=== PATIENT | female | born 1985 | race Caucasian/White ===

== ENCOUNTER → 2019-04-17 | Outpatient (CLI) | payer BC ==
--- NOTE | 2019-04-17 12:21 | MR ---
EXAMINATION TYPE: MR shoulder RT wo con DATE OF EXAM: 04/17/2019 COMPARISON: None HISTORY: Traumatic right rotator cuff tear TECHNIQUE: Multiplanar, multisequence imaging of the right shoulder is performed without contrast. FINDINGS: Rotator Cuff: There is abnormal thickening of the rotator cuff with increased signal present. Intrasu bstance fluid signal is present within the infraspinatus tendon Acromioclavicular Joint: Distal acromion is downturned. Fluid signal present in the subacromial subde ltoid bursa. There is hypertrophic change at the acromioclavicular joint. Glenohumeral Joint: Intact Labrum: The labrum appears grossly intact given limitation of non-arthrogram study. Biceps Tendon: The long head of biceps is in normal location within bicipital groove. Bone marrow signal: No focal abnormal marrow signal is appreciated. Other: No additional significant abnormality is appreciated. IMPRESSION: Findings compatible with tendinosis of the rotator cuff tendon. No discrete rotator cuff tear identif ied. Correlate for impingement.
== END | disposition home or self-care (01) ==
LOC: RADMRIMAIN 09:33
PROVIDERS: ATTEND Orthopaedic Surgery
DX: S46.011A Strain of muscle(s) and tendon(s) of the rotator cuff of right shoulder, initial encounter (principal)

== ENCOUNTER 2021-12-14 08:59 | Emergency (ER) | payer BC ==
[2021-12-14 09:03] VITALS: BP 126/72; PULSE 76; RESP 18; TEMP 97.6
--- NOTE | 2021-12-14 09:16 | ED ---
Lower Extremity Injury HPI - General Chief Complaint: Extremity Injury, Lower Stated Complaint: slip & fall, knee injury Time Seen by Provider: 12/14/21 09:05 Source: patient, RN notes reviewed Mode of arrival: ambulatory Limitations: no limitations - History of Present Illness Initial Comments: This a 36-year-old female presents emergency Department with chief complaint of left knee injury. Patient states that she slipped on some cat urine on her step causing her to slip. Patient states that she twisted her knee, popped in her knee she complains of medial knee pain in the left. No head injury loss conscious. Patient does complain of mild foot pain. - Related Data Allergies Allergy/AdvReac Type Severity Reaction Status Date / Time sumatriptan [From Imitrex] Allergy Rash/Hives Verified 12/14/21 09:04 Review of Systems ROS Statement: Those systems with pertinent positive or pertinent negative responses have been documented in the HPI. ROS Other: All systems not noted in ROS Statement are negative. Past Medical History Past Medical History: Asthma History of Any Multi-Drug Resistant Organisms: None Reported Past Surgical History: Cholecystectomy, Orthopedic Surgery, Tubal Ligation Additional Past Surgical History / Comment(s): Cyst Past Psychological History: Depression Smoking Status: Current every day smoker Past Alcohol Use History: None Reported Past Drug Use History: None Reported General Exam Limitations: no limitations General appearance: alert, in no apparent distress Head exam: Present: atraumatic, normocephalic, normal inspection Eye exam: Present: normal appearance, PERRL, EOMI. Absent: scleral icterus, conjunctival injection, periorbital swelling Neck exam: Present: normal inspection, full ROM. Absent: tenderness, meningismus, lymphadenopathy Respiratory exam: Present: normal lung sounds bilaterally. Absent: respiratory distress, wheezes, rales, rhonchi, stridor, chest wall tenderness Cardiovascular Exam: Present: regular rate, normal rhythm, normal heart sounds. Absent: systolic murmur, diastolic murmur, rubs, gallop, clicks Extremities exam: Present: other (Left knee there is mild medial knee pain, pain with valgus, no anterior posterior drawer laxity noted, neurovascular intact there is mild tenderness the left first MTP region otherwise no deformity no significant swelling and ecchymotic areas.) Back exam: Present: full ROM. Absent: tenderness, paraspinal tenderness, vertebral tenderness Neurological exam: Present: alert, oriented X3, CN II-XII intact, reflexes normal. Absent: motor sensory deficit Skin exam: Present: warm, dry, intact, normal color. Absent: rash Course Vital Signs 12/14/21 09:00 Temperature 97.6 F Pulse Rate 76 Respiratory 18 Rate Blood Pressure 126/72 O2 Sat by Pulse 100 Oximetry Medical Decision Making - Medical Decision Making 36-year-old presented emergency apartment for knee injury. X-ray shows small joint effusion. Patient was placed in knee immobilizer follow-up with orthopedics return parameters were discussed. Disposition Clinical Impression: Left knee sprain, Contusion of foot, left Disposition: HOME SELF-CARE Condition: Stable Instructions (If sedation given, give patient instructions): Knee Sprain (ED) Additional Instructions: Please return to the Emergency Department if symptoms worsen or any other concerns. Is patient prescribed a controlled substance at d/c from ED?: No Referrals: Harry Lamas MD [Primary Care Provider] - 1-2 days Oli Louie MD [Medical Doctor] - 1-2 days Time of Disposition: 10:02
--- NOTE | 2021-12-14 09:34 | XR ---
Left knee and left foot HISTORY: Pain 3 views the left knee, 3 views the left foot Left foot shows normal bone mineralization, joint spaces and alignment. No fracture or dislocation. T here is overlying artifact. Soft tissue swelling noted at the first metatarsophalangeal joint. Left knee shows normal bone mineralization, joint spaces and alignment. There may be minimal suprapat ellar joint effusion. IMPRESSION: Soft tissue swelling first metatarsophalangeal joint, minimal left knee joint effusion
== END 2021-12-14 10:14 | disposition home or self-care (01) ==
LOC: EC 08:59
DX: S83.92XA Sprain of unspecified site of left knee, initial encounter (principal); S90.32XA Contusion of left foot, initial encounter; F32.A Depression, unspecified; J45.909 Unspecified asthma, uncomplicated; F17.200 Nicotine dependence, unspecified, uncomplicated; Z88.8 Allergy status to other drugs, medicaments and biological substances; W01.0XXA Fall on same level from slipping, tripping and stumbling without subsequent striking against object, initial encounter; X50.1XXA Overexertion from prolonged static or awkward postures, initial encounter
CPT/HCPCS: 99283; 73562; 73630; L1830

== ENCOUNTER → 2022-08-25 | Outpatient (CLI) | payer BC ==
[2022-08-25 18:10] LABS: Basophils # (A) 0.03 X 10*3/uL (0.00-0.10); Basophils % (A) 0.3 %; Eosinophils # (A) 0.32 X 10*3/uL (0.04-0.35); Eosinophils % (A) 3.7 %; HCT 36.6 % (37.2-46.3); HGB 10.5 g/dL (12.0-15.0); Immature Grans, Automated 0.3 %; Lymphocytes # (A) 2.11 X 10*3/uL (0.90-5.00); Lymphocytes % (A) 24.4 %; MCH 22.9 pg (27.0-32.0); MCHC 28.7 g/dL (32.0-37.0); MCV 79.9 fL (80.0-97.0); Mean Platelet Volume 10.7 fL (9.5-12.2); Monocytes # (A) 0.31 X 10*3/uL (0.20-1.00); Monocytes % (A) 3.6 %; NRBC Per 100 WBC 0 /100 WBCS (0.0-0.0); Neutrophils # (A) 5.86 X 10*3/uL (1.80-7.70); Neutrophils % (A) 67.7 %; Platelet Count 339 X 10*3/uL (140-440); RBC 4.58 X 10*6/uL (4.10-5.20); RDW 16.5 % (11.5-14.5); WBC 8.66 X 10*3/uL (4.50-10.00)
== END | disposition home or self-care (01) ==
LOC: LABPAT 11:11
PROVIDERS: ATTEND Obstetrics & Gynecology
DX: Z01.812 Encounter for preprocedural laboratory examination (principal); N92.0 Excessive and frequent menstruation with regular cycle; D64.9 Anemia, unspecified
CPT/HCPCS: 85025

== ENCOUNTER 2022-09-07 07:24 | Day surgery (SDC) | payer BC ==
[~2022-09-07 07:24] MED LIST: DEXAMETHASONE SOD PHOSPHATE 4 MG/ML 1 ML VIAL IV ONE; LACTATED RINGERS 1,000 ML IV SCH; LIDOCAINE 1% (10MG/ML) FOR IV START INTRADERMA PRN; ONDANSETRON 4 MG/2 ML VIAL IVP ONE; Pre Op ABX Message 1 EACH MISC MISCELLANE ONE; SCOPOLAMINE 1 MG/72 HR PATCH TRANSDERM ONE; fentaNYL (PF) 50 MCG/ML 2 ML AMP IV PRN
[2022-09-07] MEDS ORDERED: LACTATED RINGERS 1,000 ML IV ONE (07:47)
[2022-09-07 07:56] VITALS: TEMP 97
[2022-09-07 08:14] LABS: Glucose,Whole Blood 112 mg/dL (70-110)
[2022-09-07] MEDS ORDERED: ONDANSETRON 4 MG/2 ML VIAL IVP ONE (08:18)
[2022-09-07] MEDS ORDERED: DEXAMETHASONE SOD PHOSPHATE 4 MG/ML 1 ML VIAL IVP ONE (08:19)
[2022-09-07] MEDS ORDERED: KETOROLAC 15 MG/ML 1 ML VIAL ONE (08:44)
[2022-09-07] MEDS ORDERED: PROPOFOL 10 MG/ML 20 ML VIAL IV ONE (08:44)
[2022-09-07] MEDS ORDERED: MIDAZOLAM 2 MG/2 ML VIAL ONE (08:44)
[2022-09-07] MEDS ORDERED: SUCCINYLCHOLINE CHLORIDE 200 MG/10 ML VIAL IV ONE (08:44)
[2022-09-07] MEDS ORDERED: fentaNYL (PF) 50 MCG/ML 2 ML AMP ONE (08:44)
[2022-09-07] MEDS ORDERED: LIDOCAINE 2% INJ 20 MG/ML (2 ML VIAL) ONE (08:44)
--- NOTE | 2022-09-07 09:24 | P.OP ---
Date of Procedure: 09/07/22 Preoperative Diagnosis: menorrhagia, secondary anemia Postoperative Diagnosis: same Procedure(s) Performed: hysteroscopy, novasure ablation Anesthesia: FORTUNATO Surgeon: Yolanda Salgado Estimated Blood Loss (ml): 5 IV fluids (ml): 300 Urine output (ml): 50 Pathology: none sent Condition: stable Disposition: PACU Operative Findings: normal appearing endometrial cavity Description of Procedure: Patient is brought to the OR, prepped and draped in the usual fashion after general anesthesia is given. Time out performed. Bladder drained for 50 cc clear urine. Exam under anesthesia is unremarkable. speculum is placed, anterior lip of the cervix grasped with allyce clamp. Uterus sounds to 12cm AVAF. Cervix is gently and systematically dilated with hanks dilators. Hysteroscopy is introduced, cavity is negative for polyps, fibroids or defects. Novasure wand is placed and seated, length of 6.5cm, width of 4.0cm is calibrated. machine is calibrated, enabled, and for 50 seconds with a power of [id number] [place] the procedure is carried out. Wand is then removed, hysteroscopic evaluation is consistant with thorough ablation. All instruments and sponges are accounted for. Patient is brought to the recovery room in excellant condition, stable vital signs are noted, toradol is given. She will follow up with me in 2 weeks.
[2022-09-07 10:22] VITALS: BP 125/81; PULSE 79; RESP 16
== END 2022-09-07 10:40 | disposition home or self-care (01) ==
LOC: OR 07:24
PROVIDERS: ATTEND Obstetrics & Gynecology
DX: N92.0 Excessive and frequent menstruation with regular cycle (principal); D64.9 Anemia, unspecified; E78.5 Hyperlipidemia, unspecified; J45.909 Unspecified asthma, uncomplicated; K21.9 Gastro-esophageal reflux disease without esophagitis; F17.200 Nicotine dependence, unspecified, uncomplicated; Z79.51 Long term (current) use of inhaled steroids; Z79.899 Other long term (current) drug therapy
CPT/HCPCS: 81025; 58563; J2250; J0330; J1100; J2405; J3010; J1885; J2704; J2001

== ENCOUNTER → 2023-09-16 | Outpatient (CLI) | payer OTHER | END | disposition home or self-care (01) | LOC: LABPAT 09:36 | PROVIDERS: ATTEND Obstetrics & Gynecology | DX: Z01.812 Encounter for preprocedural laboratory examination (principal); N93.8 Other specified abnormal uterine and vaginal bleeding; N94.6 Dysmenorrhea, unspecified | CPT/HCPCS: 87086 ==

== ENCOUNTER 2023-09-26 07:11 | Observation (INO) | payer BC, OTHER ==
[2023-09-16 10:25] LABS: Basophils # (A) 0.1 k/uL (0-0.2); Basophils % (A) 1 %; Eosinophils # (A) 0.2 k/uL (0-0.7); Eosinophils % (A) 3 %; HCT 35.4 % (34.0-46.0); HGB 11.3 gm/dL (11.4-16.0); Hypochromasia Moderate; Lymphocytes # (A) 1.9 k/uL (1.0-4.8); Lymphocytes % (A) 25 %; MCH 24.2 pg (25.0-35.0); MCHC 31.8 g/dL (31.0-37.0); MCV 76.2 fL (80.0-100.0); Monocytes # (A) 0.3 k/uL (0-1.0); Monocytes % (A) 4 %; Neutrophils % (A) 65 %; Platelet Count 332 k/uL (150-450); RBC 4.64 m/uL (3.80-5.40); RDW 13.8 % (11.5-15.5); WBC 7.7 k/uL (3.8-10.6)
[2023-09-16 10:36] LABS: African American GFR (CKD) >90 (>60 ml/min/1.73 sqM); Anion Gap 10 mmol/L; Blood Urea Nitrogen 11 mg/dL (7-17); Carbon Dioxide 27 mmol/L (22-30); Chloride 102 mmol/L (98-107); Glucose 114 mg/dL (74-99); Non-African American GFR(CKD) >90 (>60 ml/min/1.73 sqM); Potassium 4.1 mmol/L (3.5-5.1); Sodium 139 mmol/L (137-145)
[2023-09-26] MEDS ORDERED: DEXAMETHASONE SOD PHOSPHATE 4 MG/ML 1 ML VIAL IV ONE (07:44)
[2023-09-26] MEDS ORDERED: SCOPOLAMINE 1 MG/72 HR PATCH TRANSDERM ONE (07:44)
[2023-09-26] MEDS ORDERED: droPERidol 5 MG/2 ML VIAL IVP ONE (07:44)
[2023-09-26] MEDS ORDERED: ONDANSETRON 4 MG/2 ML VIAL IVP ONE (07:44)
[2023-09-26] MEDS ORDERED: fentaNYL (PF) 50 MCG/ML 2 ML AMP IV PRN (07:44)
[2023-09-26] MEDS ORDERED: LIDOCAINE 1% (10MG/ML) FOR IV START INTRADERMA PRN (07:44)
[2023-09-26 08:01] LABS: Glucose,Whole Blood 114 mg/dL (70-110)
[2023-09-26] MEDS ORDERED: MIDAZOLAM 2 MG/2 ML VIAL IVP ONE (08:11)
[2023-09-26] MEDS: LACTATED RINGERS 1,000 ML IV SCH ×2 (08:12→21:33)
[2023-09-26] MEDS ORDERED: diphenhydrAMINE 50 MG/ML 1 ML VIAL ONE ×2 (08:34→09:39)
--- NOTE | 2023-09-26 08:34 | P.ANPRN ---
Procedure Note - Anesthesia - Epidural/Spinal Spinal Time Out Performed: Yes Date of Procedure: 09/26/23 Procedure Start Time: Procedure Stop Time: Location of Patient: PreOp Indication: Acute Post-Operative Pain, Analgesia, Requested by Surgeon Sedation Type: Sedate with meaningful contact maintained Preparation: Sterile Prep Number of Attempts: 2 Position: Sitting Catheter: None Needle Guage: 22 Injectate: Duramorph 300 microgram + Fentanyl 25mics Narrative: Attempted first with 15 G needle, unsuccessful secondary to thick subcutaneous tissue. Blood Aspirated: No Pain Paresthesia on Injection Noted: No Events: Uneventful and Well Tolerated (Negative blood, paresthesia.)
[2023-09-26] MEDS ORDERED: diphenhydrAMINE 50 MG/ML 1 ML VIAL IVP ONE (08:37)
[2023-09-26] MEDS ORDERED: NALOXONE 0.4 MG/ML 1 ML VIAL IV PRN (08:37)
[2023-09-26] MEDS ORDERED: ROCURONIUM 10 MG/ML (5 ML VIAL) IV ONE (09:39)
[2023-09-26] MEDS ORDERED: PROPOFOL 10 MG/ML 20 ML VIAL IV ONE (09:39)
[2023-09-26] MEDS ORDERED: SUCCINYLCHOLINE CHLORIDE 200 MG/10 ML VIAL IV ONE (09:39)
[2023-09-26] MEDS ORDERED: MORPHINE SULFATE (PF) 0.3 MG/0.3 ML SYR ONE (09:39)
[2023-09-26] MEDS ORDERED: ACETAMINOPHEN IV (For NPO) 1,000 MG/100 ML VIAL ONE (09:39)
[2023-09-26] MEDS ORDERED: KETOROLAC 15 MG/ML 1 ML VIAL ONE (09:39)
[2023-09-26] MEDS ORDERED: fentaNYL (PF) 50 MCG/ML 2 ML AMP ONE (09:39)
[2023-09-26] MEDS ORDERED: NEOSTIGMINE 1 MG/ML 10 ML VIAL ONE (09:39)
[2023-09-26] MEDS ORDERED: LIDOCAINE 1% INJ 10MG/ML (20 ML MDV) ONE (09:39)
[2023-09-26] MEDS ORDERED: MIDAZOLAM 2 MG/2 ML VIAL ONE (09:39)
[2023-09-26] MEDS ORDERED: GLYCOPYRROLATE 0.2 MG/ML 2 ML VIAL ONE (09:39)
[2023-09-26] MEDS ORDERED: BUPIVACAINE (PF) 0.25% 30 ML VIAL SQ ONE (10:12)
[2023-09-26] MEDS ORDERED: IV FLUID CONTINUATION 1,000 ML IV ONE (11:36)
[2023-09-26] MEDS ORDERED: SIMETHICONE 80 MG CHEWABLE PO PRN (12:05)
[2023-09-26] MEDS ORDERED: ONDANSETRON 4 MG/2 ML VIAL IVP PRN (12:05)
[2023-09-26] MEDS ORDERED: IBUPROFEN 600 MG TAB PO PRN (12:05)
--- NOTE | 2023-09-26 12:05 | P.OP ---
Date of Procedure: 09/26/23 Preoperative Diagnosis: 1. Abnormal Uterine Bleeding 2. Uterine Fibroids 3. Dysmenorrhea 4. Failed Endometrial Ablation Postoperative Diagnosis: Same Procedure(s) Performed: Robotic Assisted Total Laparoscopic Hysterectomy, Bilateral Salpingectomy, and Cystoscopy Implants: None Anesthesia: FORTUNATO Surgeon: Eunice Flores Radio Sportscaster #1: Lula Bush Estimated Blood Loss (ml): 10 IV fluids (ml): 1,000 Urine output (ml): 100 (clear yellow) Pathology: other (uterus, cervix, bilateral fallopian tubes) Disposition: floor Indications for Procedure: Ms. Murrieta is a 37 year old with a history of AUB-L with no improvement from endometrial ablation who presents today for definitive management with RATLH, BS, and Cystoscopy. Risks, benefits, and alternatives to surgery are discussed including risk of bleeding, infection, damage to surrounding structures including bowel/bladder/ureters, and post-operative VTE. The patient accepts these risks and desires to proceed with the surgery as discussed. Operative Findings: Bulky, enlarged, fibroid uterus noted. Post-tubal ligation changes are noted bilaterally with a Filshie Clip seen on the left fallopian tube and a hydrosalpinx of the left fallopian tube noted. Unremarkble ovaries bilaterally. Normal-appearing liver. Description of Procedure: Prior to the beginning of the procedure, the team paused to verify the patients identity, the procedure to be performed (in accordance with the consent,) and the correct side/site. The patient was positioned appropriately. All relevant images and results were properly labeled and displayed. We addressed antibiotic prophylaxis and fluids for irrigation as applicable to this patient. Any safety precautions were addressed. The patient was taken to the operating room where general anesthesia was induced without difficulty. She was then positioned in the dorsal lithotomy position in [facility]. Positioning included placing her arms at her sides. After the patient was placed in what was felt to be a neurologically safe position, deep Trendelenburg position was tested prior to the operative procedure, to ensure that she would not move on the operating table. The patient was then prepped and draped in the normal sterile fashion for a combined abdominovaginal surgery. A Womack catheter was placed in the bladder for continuous drainage. Uterus was sounded to 10 cm. Capigami-Bionovo manipulator was placed in the uterus for manipulation. Attention was then placed to the abdomen. The normal length Veress needle was introduced into the abdominal cavity while tenting the abdominal wall. Low pressure was noted confirming appropriate placement. The abdomen was then insufflated to 15mmHg for the remainder of the case. The Veress needle was removed, and an 8 mm port was placed at the umbilical site under direct laparscopic visualization and there was no evidence of injury from the trocar placement. Visualization of the intraabdominal cavity showed normal pelvic anatomy without evidence of adhesions. The port sites for the remainder of the case were then measured out and placed under direct visualization. On the left side, one 8 mm robotic assist port and one 10 mm assist port were placed. On the right side, one 8 mm robotic port was placed. The [employer] robot was then brought to the operative field in a lateral docking style to the left of the patient and the robot was docked to the ports. All robotic instruments were brought into the pelvis under direct visualization with monopolar scissors in arm #3 and vessel sealer in arm #1. Bilateral ureters were visualized prior to starting the surgery. The right fallopian tube was grasped at the fimbriated end and sequentially cauterized and cut to the level of the uterine cornua. The right uteroovarian ligement was cauterized and cut. The right round ligament was cauterized and cut. Broad ligament was opened and bladder flap created. This was repeated on the left side. The peritoneum of the bilateral broad ligaments was then taken down and monopolar cautery used to skeletonize the uterine arteries bilaterally. During the course of this dissection, the anterior leaf of the broad ligament was also taken down over the anterior aspect of the uterus and cervix to create a bladder flap. The bladder was then dissected off the cervix and upper vagina with the monopolar scissors and gentle blunt dissection. The bilateral uterine arteries were then cauterized and divided at the level of the internal cervical os. The monopolar cautery was used to incise the vaginal cuff. The uterus, along with the cervix was removed vaginally with wedge resection of the uterus with a scalpel. Cuff was closed in with 0-Stratifix sutures. Excellent hemostasis was noted at this time. A 70 degree cystoscopy was performed which confirmed no suture placement within the bladder, no trauma to the bladder. Good efflux was noted from both ureteric orifices. The robot was undocked from the trocars and brought out of the operative field. The remainder of the ports were removed, and the gas was allowed to escape. All skin incisions were infiltrated with lidocaine and closed with 4-0 Monocryl and dermabond. Hemostasis was noted to be excellent throughout, and final sponge, instrument, and needle count was noted to be correct. The patient was moved back to the preoperative holding area in stable condition having tolerated the procedure well.
[2023-09-26] MEDS ORDERED: ALBUTEROL NEBULIZED 2.5 MG/3 ML INHALATION ONE (12:30)
[2023-09-26 12:46] LABS: Glucose,Whole Blood 135 mg/dL (70-110)
[2023-09-26] MEDS ORDERED: diphenhydrAMINE 25 MG CAP PO PRN (14:51)
[2023-09-26] MEDS: diphenhydrAMINE 50 MG/ML 1 ML VIAL IVP PRN (16:26)
[2023-09-26] MEDS: KETOROLAC 15 MG/ML 1 ML VIAL IVP PRN (18:14)
[2023-09-26] MEDS ORDERED: PANTOPRAZOLE 40 MG TABLET PO SCH (21:00)
[2023-09-26] MEDS ORDERED: ATORVASTATIN 40 MG TAB PO SCH (21:00)
[2023-09-26] MEDS ORDERED: FLUoxetine HCL 20 MG CAP PO SCH (21:00)
[2023-09-26] MEDS: ACETAMINOPHEN TAB 325 MG TAB PO PRN (21:36)
[2023-09-27] MEDS: diphenhydrAMINE 50 MG/ML 1 ML VIAL IVP PRN (00:14)
[2023-09-27] MEDS: KETOROLAC 15 MG/ML 1 ML VIAL IVP PRN (00:14)
[2023-09-27 00:26] VITALS: TEMP 98.1
[2023-09-27] MEDS: ACETAMINOPHEN TAB 325 MG TAB PO PRN ×2 (04:21→11:07)
[2023-09-27 07:23] LABS: Basophils % (A) 0 %; Eosinophils % (A) 0 %; HCT 33.3 % (34.0-46.0); HGB 10.5 gm/dL (11.4-16.0); Hypochromasia Moderate; Lymphocytes # (A) 2.2 k/uL (1.0-4.8); Lymphocytes % (A) 19 %; MCH 23.8 pg (25.0-35.0); MCHC 31.4 g/dL (31.0-37.0); MCV 75.9 fL (80.0-100.0); Mean Platelet Volume 8.3; Monocytes # (A) 0.5 k/uL (0-1.0); Monocytes % (A) 5 %; Neutrophils # (A) 8.6 k/uL (1.3-7.7); Neutrophils % (A) 74 %; Platelet Count 323 k/uL (150-450); RBC 4.39 m/uL (3.80-5.40); WBC 11.5 k/uL (3.8-10.6)
[2023-09-27 08:59] VITALS: BP 124/81; PULSE 93; RESP 17
--- NOTE | 2023-09-27 10:50 | P.PN ---
Progress Note - Text 09/27/23 641am 37-year-old female status post hysterectomy. Patient received spinal Duramorph for postop pain control, she was seen and evaluatedfor postop pain control, she has a VAS of 1 with no complains of nausea vomiting mild pruritus
--- NOTE | 2023-09-27 12:50 | P.DS ---
Providers Date of admission: 09/27/23 11:39 Expected date of discharge: 09/27/23 Attending physician: Eunice Flores MD Primary care physician: Harry Adams [facility] Course: Ms. Murrieta is a 37 year old POD#1 s/p LISANDRO, BS, Cystoscopy for AUB-L. The patient is doing well this morning and had no acute events overnight. She has no complaints this morning. She reports no vaginal bleeding, passing flatus, voiding without difficulty, ambulating, and eating/drinking without nausea or vomiting. She denies chest pain, shortness of breathing, fevers, or chills overnight. She denies pain or swelling in the legs. Postoperative restrictions are reviewed with the patient including pelvic rest for 6 weeks, no lifting heavier than 15 pounds for 6 weeks. The patient is encouraged to call the office if she experiences any heavy bleeding, foul-smelling discharge, or any if she has any other concerns. She will follow up in the office with in 2 weeks for postoperative exam. She will use OTC Motrin and requests Tylenol rx. All ques tions are answered. Assessment: 37 year old POD#1 s/p TESSA MCMAHON, Cystoscopy Patient Condition at Discharge: Good Plan - Discharge Summary Discharge Rx Participant: Yes New Discharge Prescriptions: New Acetaminophen Tab [Tylenol] 650 mg PO Q6H PRN #30 tab PRN Reason: Mild Pain (Scale 1 To 3) No Action Furosemide [Lasix] 20 mg PO DAILY PRN PRN Reason: Edema Ibuprofen [Motrin] 800 mg PO Q8H PRN PRN Reason: Pain ALPRAZolam [Xanax] 0.5 mg PO DAILY PRN PRN Reason: Anxiety Simvastatin [Zocor] 80 mg PO HS Omeprazole [PriLOSEC] 20 mg PO HS FLUoxetine HCL [PROzac] 80 mg PO HS Albuterol Inhaler [Ventolin Hfa Inhaler] 1 - 2 puff INHALATION Q6H PRN PRN Reason: Shortness Of Breath tiZANidine HCL [Zanaflex] 4 mg PO HS PRN PRN Reason: Muscle Spasm Discharge Medication List ALPRAZolam [Xanax] 0.5 mg PO DAILY PRN 12/14/21 [History] FLUoxetine HCL [PROzac] 80 mg PO HS 12/14/21 [History] Omeprazole [PriLOSEC] 20 mg PO HS 12/14/21 [History] Simvastatin [Zocor] 80 mg PO HS 12/14/21 [History] Albuterol Inhaler [Ventolin Hfa Inhaler] 1 - 2 puff INHALATION Q6H PRN 09/02/22 [History] Furosemide [Lasix] 20 mg PO DAILY PRN 09/02/22 [History] tiZANidine HCL [Zanaflex] 4 mg PO HS PRN 09/02/22 [History] Ibuprofen [Motrin] 800 mg PO Q8H PRN 09/21/23 [History] Acetaminophen Tab [Tylenol] 650 mg PO Q6H PRN #30 tab 09/27/23 [Rx] Follow up Appointment(s)/Referral(s): Eunice Flores MD [STAFF PHYSICIAN] - 2 Weeks Patient Instructions/Handouts: *Surgery [facility] - Scopalamine Patch Instructions Activity/Diet/Wound Care/Special Instructions: Postoperative Instructions 1. No heavy lifting or straining (exercising) until after 6 week checkup. 2. Do not resume sexual relations for 6 weeks or longer if uncomfortable. 3. Keep abdominal incision clean and dry: You may wear a dressing if more comfortable. 4. Keep any areas repaired with stitches clean and dry. 5. Call the office, , within the next week to make appointment for your 2 week checkup 6. Report any of the following occurrences to the doctor promptly: a. Heavy, excessive bleeding b. Chills, fever c. Burning or frequency of urination d. Pain or redness around the incisions Discharge Disposition: HOME SELF-CARE
== END 2023-09-27 13:46 | disposition home or self-care (01) ==
LOC: OR 07:11 → 4FBP 12:23 → OR 09-27 11:39 → 4FBP 09-27 11:39
PROVIDERS: ADMIT Obstetrics & Gynecology; ATTEND Obstetrics & Gynecology
DX: D25.1 Intramural leiomyoma of uterus (principal); N94.6 Dysmenorrhea, unspecified; N93.8 Other specified abnormal uterine and vaginal bleeding; L29.9 Pruritus, unspecified; J45.909 Unspecified asthma, uncomplicated; K21.9 Gastro-esophageal reflux disease without esophagitis; F17.290 Nicotine dependence, other tobacco product, uncomplicated; E78.00 Pure hypercholesterolemia, unspecified; Z79.51 Long term (current) use of inhaled steroids; Z79.899 Other long term (current) drug therapy; Z91.012 Allergy to eggs; Z88.5 Allergy status to narcotic agent; Z88.8 Allergy status to other drugs, medicaments and biological substances; Z91.048 Other nonmedicinal substance allergy status; Z87.42 Personal history of other diseases of the female genital tract; Z90.49 Acquired absence of other specified parts of digestive tract; Z98.51 Tubal ligation status; Z98.890 Other specified postprocedural states; Z83.3 Family history of diabetes mellitus; Z82.49 Family history of ischemic heart disease and other diseases of the circulatory system
CPT/HCPCS: 58573; 62322; S2900; 80051; 81025; 82565; 82947; 84520; 85025; 86850; 86900; 86901; 88307